=== PATIENT | male | born 1955 | race Caucasian/White ===

== ENCOUNTER 2021-09-26 12:45 | Inpatient (IN) | payer OTHER ==
[~2021-09-26] VITALS: Ht 180.3 cm; Wt 65.0 kg
[~2021-09-26 12:45] MED LIST: CLARITIN10 M1 PO; LISINOPRIL10 MG PO
--- NOTE | 2021-09-26 13:25 | NUR ---
PT ESCORTED TO ROOM 6 FOR EVALUATION OF SOB
[2021-09-26 13:46] LABS: HEMATOCRIT 38.3 % (39.0-50.0); IMMATURE GRANULOCYTES 0.3 % (0.0-5.0); MEAN CELL VOLUME 92.3 fL CALC (80.0-100.0); MEAN CORPUSCULAR HGB 30.1 pG CALC (26.0-32.0); MEAN CORPUSCULAR HGB CONC 32.6 g/dL CAL (32.0-36.0); NEUT# 6.09 thou/uL (1.82-7.42); RED BLOOD COUNT 4.15 mill/uL (4.70-6.10); RED CELL DISTRI WIDTH 15.9 % (11.5-15.5)
[2021-09-26 13:56] LABS: HEMOGLOBIN 12.5 g/dl (14.0-18.0)
[2021-09-26 13:59] LABS: ALBUMIN 4.1 g/dL (3.2-5.0); ALKALINE PHOSPHATASE 50 u/l (38-126); AMYLASE 90 u/l (30-110); BUN 59 mg/dL (8-23); C-REACTIVE PROTEIN 8.9 mg/dL (0-0.9); CHLORIDE 102 mmol/l (95-108); LIPASE 184 u/l (23-300); MAGNESIUM 2.8 mg/dL (1.6-2.3); POTASSIUM 4.2 mmol/l (3.5-5.1); SGOT/AST 25 u/l (19-48); SODIUM 136 mmol/l (137-146); TOTAL PROTEIN 7.8 g/dL (6.3-8.2)
[2021-09-26 14:01] LABS: ANION GAP 19 (6-22 (CALC)); BILIRUBIN, TOTAL 0.7 mg/dL (0.0-1.4); BUN/CREATININE RATIO 27 (12-20 (CALC)); CARBON DIOXIDE 19 mmol/l (22-30); CREATININE 2.2 mg/dL (0.7-1.3); GFR 30 ML/MIN (>=60 (CALC)); GFR FOR AFR.AMER. 36 ML/MIN (>=60 (CALC))
[2021-09-26 15:32] LABS: URINE BILIRUBIN - DIPSTICK NEGATIVE (NEGATIVE); URINE BLOOD DIPSTICK NEGATIVE (NEGATIVE); URINE COLOR YELLOW; URINE GLUCOSE - DIPSTICK NEGATIVE (NEGATIVE); URINE KETONE NEGATIVE (NEGATIVE); URINE LEUK ESTERASE NEGATIVE (NEGATIVE); URINE PH 5.5 (4.5-8.0); URINE PROTEIN - DIPSTICK NEGATIVE (NEG-TRACE); URINE UROBILINOGEN - DIPSTICK 0.2 E.U./dL (0.2)
[2021-09-26 15:34] LABS: URINE NITRITE - DIPSTICK NEGATIVE (Negative)
--- NOTE | 2021-09-26 20:33 | NUR ---
PATIENT ADMITTED TO [facility] / [facility] TO ROOM 266 VIA STRETCHER. AMBULATED SELF TO ROOM BED WITHOUT DIFFICULTY. SHORTNESS OF BREATH ONLY WHEN AMBULATING. PATIENT ALERT AND ORIENTED. ABLE TO MAKE NEEDS KNOWN. ASSESSMENT COMPLETE. IV #20 TO LT. AC FLUSHED AND PATENT. ORIENTED PATIENT TO ROOM CALL LIGHT AND SURROUNDINGS. O2 AT 2L VIA NC. GAVE PATIENT WARM BLANKET FROM BLANKET WARMER PER REQUEST. FRESH WATER AT BEDSIDE. CALL LIGHT AND BELONGINGS REMAIN IN REACH.
[2021-09-26 20:49] VITALS: BP 140/63
--- NOTE | 2021-09-26 23:30 | NUR ---
PATIENT RESTING IN BED QUIETLY ON HIS LEFT SIDE. NO COMPLAINTS OF PAIN OR DISCOMFORT NOTED. NO SIGNS OF DISTRESS NOTED. CALL LIGHT AND BELONGINGS REMAIN IN REACH.
[2021-09-27] VITALS (7 sets, daily range): BP systolic 106–120; BP diastolic 58–70
--- NOTE | 2021-09-27 04:00 | NUR ---
PATIENT RESTING IN BED. NO COMPLAINTS VOICED. NO SIGNS OF DISTRESS NOTED. DENIES NEEDING ANYTHING AT THIS TIME. CALL LIGHT AND BELONGINGS REMAIN IN REACH.
[2021-09-27 05:11] LABS: HEMATOCRIT 36.5 % (39.0-50.0); HEMOGLOBIN 11.6 g/dl (14.0-18.0); IMMATURE GRANULOCYTES 0.5 % (0.0-5.0); MEAN CELL VOLUME 95.1 fL CALC (80.0-100.0); MEAN CORPUSCULAR HGB 30.2 pG CALC (26.0-32.0); MEAN CORPUSCULAR HGB CONC 31.8 g/dL CAL (32.0-36.0); NEUT# 3.41 thou/uL (1.82-7.42); RED BLOOD COUNT 3.84 mill/uL (4.70-6.10)
[2021-09-27 05:27] LABS: ALKALINE PHOSPHATASE 43 u/l (38-126); ANION GAP 18 (6-22 (CALC)); CARBON DIOXIDE 16 mmol/l (22-30); CHLORIDE 111 mmol/l (95-108); CREATININE 1.4 mg/dL (0.7-1.3); GFR 51 ML/MIN (>=60 (CALC)); GFR FOR AFR.AMER. > 60 ML/MIN (>=60 (CALC)); SGOT/AST 19 u/l (19-48); SODIUM 140 mmol/l (137-146)
[2021-09-27 05:28] LABS: BILIRUBIN, TOTAL 0.4 mg/dL (0.0-1.4); BUN 39 mg/dL (8-23); BUN/CREATININE RATIO 28 (12-20 (CALC)); TOTAL PROTEIN 5.8 g/dL (6.3-8.2)
[2021-09-27 05:41] LABS: C-REACTIVE PROTEIN 12.9 mg/dL (0-0.9)
--- NOTE | 2021-09-27 09:30 | NUR ---
PT SITTING IN BED. A&O X3. O2 VIA NC @2L IN PLACE; O2 TITRATED UP TO 3L O2 WAS SUSTAINING 88%. O2 VIA 3L SUSTAINING 91-92%. CLEAR/DIMINISHED BREATH SOUNDS. PT ENCOURAGED NOT TO GET OOB WITHOUT O2, TRACK OILER APPLIED TO REACH REST ROOM. ACTIVE BOWEL SOUNDS X4 QUADRANTS. HEADING UP MACHINE OPERATOR IN PLACE. IV HEALTHY AND PATENT WITH IVF INFUSING PER MAR ORDER. ASSESSMENT COMPLETED. DISCUSSED POC. ISOLATION PRECAUTIONS IN PLACE. CALL LIGHT WITHIN REACH. MED REC COMPLETED AND INFORMATION GIVEN TO Italia GUAN.
[2021-09-27] MEDS ORDERED: SG ASA LOW81 M1 PO (10:30)
[2021-09-27] MEDS ORDERED: LISINOP/HCTZ1 TAB PO (10:30)
[2021-09-27] MEDS ORDERED: PROAIR HFA IN (10:31)
[2021-09-27] MEDS ORDERED: SPIRIVA IN (10:31)
[2021-09-27] MEDS ORDERED: FLOVENT HF110 MCG/AC IN (10:32)
--- NOTE | 2021-09-27 10:50 | NUR ---
DR CLEANING AT BEDSIDE DISCUSSING POC
--- NOTE | 2021-09-27 11:40 | NUR ---
PT SITTING IN BED. NO DISTRESS NOTED. NO NEEDS REPORTED. O2 REMAINS UNCHANGED. CALL LIGHT WITHIN REACH.
--- NOTE | 2021-09-27 18:16 | NUR ---
PT SITTING IN BED EATING DINNER. NO DISTRESS NOTED. O2 REMAINS UNCHANGED. CALL LIGHT WITHIN REACH.
--- NOTE | 2021-09-27 19:35 | NUR ---
PATIENT RESTING IN BED. ASSESSMENT COMPLETE. NO SIGNS OF DISTRESS NOTED. NO COMPLAINTS OF PAIN. CALL LIGHT AND BELONGINGS REMAIN IN REACH.
--- NOTE | 2021-09-28 00:27 | NUR ---
PATIENT RESTING IN BED ON HIS LEFT SIDE. NO SIGNS OF PAIN OR DISTRESS. CALL LIGHT AND BELONGINGS REMAIN IN PATIENTS REACH.
--- NOTE | 2021-09-28 03:45 | NUR ---
PATIENT RESTING IN BED QUIETLY. NO SIGNS OF DISTRESS. NO COMPLAINTS OF PAIN. TELE LEAD FIXED, WORKING APPROPRIATELY NOW. NEW BAG OF IV FLUIDS HANGING. CALL LIGHT AND BELONGINGS REMAIN IN PATIENTS REACH.
[2021-09-28 04:39] VITALS: BP 118/58
[2021-09-28 06:11] LABS: HEMATOCRIT 35.6 % (39.0-50.0); MEAN CELL VOLUME 97.8 fL CALC (80.0-100.0); MEAN CORPUSCULAR HGB 30.2 pG CALC (26.0-32.0); MEAN CORPUSCULAR HGB CONC 30.9 g/dL CAL (32.0-36.0); RED BLOOD COUNT 3.64 mill/uL (4.70-6.10); RED CELL DISTRI WIDTH 16.5 % (11.5-15.5)
[2021-09-28 06:13] LABS: ALBUMIN 2.9 g/dL (3.2-5.0); ALKALINE PHOSPHATASE 39 u/l (38-126); BUN 27 mg/dL (8-23); BUN/CREATININE RATIO 21 (12-20 (CALC)); CARBON DIOXIDE 18 mmol/l (22-30); CHLORIDE 114 mmol/l (95-108); CREATININE 1.3 mg/dL (0.7-1.3); GFR 55 ML/MIN (>=60 (CALC)); GFR FOR AFR.AMER. > 60 ML/MIN (>=60 (CALC)); SGOT/AST 19 u/l (19-48); SODIUM 140 mmol/l (137-146); TOTAL PROTEIN 5.6 g/dL (6.3-8.2)
[2021-09-28 06:26] LABS: ANION GAP 14 (6-22 (CALC)); BILIRUBIN, TOTAL 0.2 mg/dL (0.0-1.4); POTASSIUM 5.6 mmol/l (3.5-5.1)
--- NOTE | 2021-09-28 07:00 | NUR ---
REPORT REC FROM Dylan CARUSO RN
[2021-09-28 08:02] VITALS: BP 135/65
--- NOTE | 2021-09-28 08:04 | NUR ---
PT SITTING IN BED. A&O X3. NO DISTRESS NOTED. O2 VIA NC @3L SUSTAINING 95%, O2 TITRATED DOWN TO 2L. O2 TO BE MONITORED FOR TITRATION NEEDS. EXERTIONAL SOB NOTED AND REPORTED WITH AMBULATION TO THE BATHROOM. CLEAR/DIMINISHED BREATH SOUNDS UPON AUSCULTATION. ACTIVE BOWEL SOUNDS X4 QUADRANTS. COTTON CLEANER IN PLACE. IV HEALTHY AND PATENT. IVF INFUSING PER MAR ORDERS. ASSESSMENT COMPLETED. DISCUSSED POC. CALL LIGHT WITHIN REACH.
--- NOTE | 2021-09-28 10:31 | NUR ---
WALK TEST PREFORMED BY THIS INFORMATICS ANALYST AND A RHIANNONARA RT. O2 DURING AMBULATION 87%. O2 REAPPLIED 94%. RESULTS COMMUNICATED WITH AND ZAHIRA ALONG WITH CM.
[2021-09-28 10:33] VITALS: BP 118/58
--- NOTE | 2021-09-28 10:51 | NUR ---
DR CLEANING AND Dylan ELMORE POULTRY HUSBANDRY WORKER AT BEDSIDE DISCUSSING POC
--- NOTE | 2021-09-28 12:30 | NUR ---
PT SITTING IN BED EATING LUNCH. NO DISTRESS NOTED. O2 REMAINS UNCHANGED AT 2L VIA NC. NO NEEDS REPORTED AT THIS TIME. CALL LIGHT WITHIN REACH.
--- NOTE | 2021-09-28 13:41 | NUR ---
PT SITTING IN BED. NO DISTRESS NOTED. O2 VIA NC @2L REMAINS UNCHANGED. REMDESIVIR INITIATED AT THIS TIME. CALL LIGHT WITHIN REACH.
[2021-09-28 16:04] VITALS: BP 110/61
--- NOTE | 2021-09-28 18:10 | NUR ---
PT SITTING IN BED. NO DISTRESS NOT ED. O2 REMAINS UNCHANGED AT 2L. VASELINE GIVEN FOR REPORTED DRY NOSE; HUMIDIFICATION FOR O2 APPLIED BY DEION RT. NO OTHER NEEDS AT THIS TIME. CALL LIGHT WITHIN REACH
[2021-09-28 19:00] VITALS: BP 129/64
--- NOTE | 2021-09-28 20:15 | NUR ---
PT IN BED. UPPER LUNG MCCARTNEY CLEAR; LOWER LUNG MCCARTNEY DIMINISHED UPON AUSCULTATION. TELEMETRY IN PLACE. O2 @ 2L WITH HUMIDIFIER IN PLACE. ACTIVE BOWEL SOUNDS X4 QUADRANTS. INTACT SKIN. CLUBBED NAILS NOTED. IV SITE HEALTHY AND PATENT. SAFETY PRECAUTIONS IN PLACE. CALL LIGHT WITHIN REACH.
[2021-09-29] VITALS (7 sets, daily range): BP systolic 127–165; BP diastolic 62–73
--- NOTE | 2021-09-29 00:15 | NUR ---
PT SLEEPING IN BED. REPLACE ELECTRODES ON TELEMETRY; TELEMETRY IN PLACE. NO DISTRESS NOTED. PT DENIES PAIN AT THE MOMENT. SAFETY PRECAUTIONS IN PLACE. CALL LIGHT WITHIN REACH.
--- NOTE | 2021-09-29 05:35 | NUR ---
PT HELPED TO RESTROOM; SOME SOB ON EXERTION. O2 @ 2L VIA NASAL CANULA IN PLACE. PT REQUESTED A WARMED BLANKET. TELEMETRY AND SAFETY PRECAUTIONS IN PLACE. CALL LIGHT WITHIN REACH.
[2021-09-29 06:10] LABS: HEMATOCRIT 34.9 % (39.0-50.0); HEMOGLOBIN 10.9 g/dl (14.0-18.0); IMMATURE GRANULOCYTES 0.4 % (0.0-5.0); MEAN CELL VOLUME 96.9 fL CALC (80.0-100.0); MEAN CORPUSCULAR HGB 30.3 pG CALC (26.0-32.0); MEAN CORPUSCULAR HGB CONC 31.2 g/dL CAL (32.0-36.0); NEUT# 13.6 thou/uL (1.82-7.42); RED BLOOD COUNT 3.6 mill/uL (4.70-6.10); RED CELL DISTRI WIDTH 16.6 % (11.5-15.5)
[2021-09-29 06:50] LABS: ALBUMIN 2.8 g/dL (3.2-5.0); C-REACTIVE PROTEIN 3.4 mg/dL (0-0.9); CREATININE 1.5 mg/dL (0.7-1.3); TOTAL PROTEIN 5.4 g/dL (6.3-8.2)
[2021-09-29 06:57] LABS: POTASSIUM 5.8 mmol/l (3.5-5.1)
--- NOTE | 2021-09-29 07:30 | NUR ---
REPORT FROM MARYSE MONTEZ. PT NOTED SITTING UP IN BED. NO APPARENT DISTRESS NOTED. RESPIRATIONS EVEN AND UNLABORED. 02 @ 2L/M VIA NC. A&OX4. PT DENIES ANY PAIN OR DISCOMFORT. DISCUSSED POC. PT VERBALIZED UNDERSTANDING. IV SITE APPEARS HEALTHY. BUDGET ASSISTANT IN PLACE. CALL LIGHT WITHIN REACH. WILL CONTINUE TO MONITOR.
--- NOTE | 2021-09-29 09:10 | NUR ---
YENNY MONTEZ AT BEDSIDE TO ADMINISTER IV INSULIN.
--- NOTE | 2021-09-29 11:49 | NUR ---
PT RESTING IN BED. NO APPARENT DISTRESS NOTED. RESPIRATION EVEN AND UNLABORED. CALL LIGHT WITHIN REACH. WILL CONTINUE TO MONITOR.
--- NOTE | 2021-09-29 14:08 | NUR ---
IV SITE LEAKING, NEW IV ACCESS ESTABLISHED X1 ATTEMPT. PT TOLERATED WELL. OLD IV SITE REMOVED WITH CATH INTACT.
--- NOTE | 2021-09-29 19:00 | NUR ---
REPORT RECEIVED FROM Jenn RUVALCABA LPN
--- NOTE | 2021-09-29 19:30 | NUR ---
PATIENT ASSESSMENT COMPLETED AT THIS TIME
[2021-09-30] VITALS: BP 159/69
--- NOTE | 2021-09-30 | NUR ---
PT UP WATCHING TV, CALL LIGHT AND BEDSIDE TABLE WIHTIN REACH.
[2021-09-30 04:00] VITALS: BP 139/72
--- NOTE | 2021-09-30 04:30 | NUR ---
PT SLEEPING, AWOKEN BY WRITTER. DENIES ANY CURRENT NEEDS. CALL LIGHT AND BEDSIDE WITHIN REACH.
[2021-09-30 04:52] LABS: HEMOGLOBIN 11.1 g/dl (14.0-18.0); IMMATURE GRANULOCYTES 0.6 % (0.0-5.0); MEAN CELL VOLUME 96.7 fL CALC (80.0-100.0); MEAN CORPUSCULAR HGB 30.7 pG CALC (26.0-32.0); MEAN CORPUSCULAR HGB CONC 31.7 g/dL CAL (32.0-36.0); NEUT# 9.22 thou/uL (1.82-7.42); RED BLOOD COUNT 3.62 mill/uL (4.70-6.10); RED CELL DISTRI WIDTH 16.4 % (11.5-15.5)
[2021-09-30 05:34] LABS: ALBUMIN 2.8 g/dL (3.2-5.0); ALKALINE PHOSPHATASE 36 u/l (38-126); ANION GAP 13 (6-22 (CALC)); BUN 33 mg/dL (8-23); BUN/CREATININE RATIO 28 (12-20 (CALC)); C-REACTIVE PROTEIN 2.2 mg/dL (0-0.9); CARBON DIOXIDE 23 mmol/l (22-30); CHLORIDE 112 mmol/l (95-108); CREATININE 1.2 mg/dL (0.7-1.3); GFR 60 ML/MIN (>=60 (CALC)); GFR FOR AFR.AMER. > 60 ML/MIN (>=60 (CALC)); POTASSIUM 4.7 mmol/l (3.5-5.1); SGOT/AST 32 u/l (19-48); SODIUM 142 mmol/l (137-146); TOTAL PROTEIN 5.3 g/dL (6.3-8.2)
[2021-09-30 05:43] LABS: BILIRUBIN, TOTAL 0.1 mg/dL (0.0-1.4)
--- NOTE | 2021-09-30 06:23 | NUR ---
PT SUSTAINING IN 38S. PT ASYMPTOMATIC
--- NOTE | 2021-09-30 07:05 | NUR ---
REPORT FROM GERSON MONTEZ. ASSUMED PT CARE.
[2021-09-30 08:00] VITALS: BP 164/76
--- NOTE | 2021-09-30 08:50 | NUR ---
PHYSICIAN AT BEDSIDE.
[2021-09-30 10:25] VITALS: BP 139/66
--- NOTE | 2021-09-30 12:25 | NUR ---
PT SITTING UP IN BED EATING LUNCH. NO APPARENT DISTRESS NOTED. RESPIRATIONS EVEN AND UNLABORED, O2 @ 2L/M VIA NC. PT DENIES ANY PAIN OR SOB. CALL LIGHT WITHIN REACH. WILL CONTINUE TO MONITOR.
--- NOTE | 2021-09-30 13:28 | NUR ---
O2 SAT 97% ON 2L.
[2021-09-30 15:30] VITALS: BP 182/83
[2021-09-30] MEDS ORDERED: ZPAK PO (15:33)
[2021-09-30] MEDS ORDERED: ASPIRIN REGULA325 M1 PO (15:34)
[2021-09-30] MEDS ORDERED: DEXAMETHASON6 MG PO (15:35)
[2021-09-30] MEDS ORDERED: TESSALON PERLE100 MG PO (15:35)
--- NOTE | 2021-09-30 16:23 | NUR ---
IV site discontinued, cath intact. No edema , no redness, voices no discomfort.
--- NOTE | 2021-09-30 16:39 | NUR ---
Discharge instructions given. Patient verbalizes understanding of same. Discharged in stable condition via Wheelchair to Home with staff. All belongings sent with pt.
== END 2021-09-30 16:39 | disposition home health service (06) | DRG 177 ==
LOC: ED 12:45 → ED-I 13:32 → ED 18:21 → MS2 18:22
PROVIDERS: Emergency Medicine; Nurse Practitioner; ADMIT Internal Medicine; ATTEND Internal Medicine
PROC: XW033E5 Introduction of Remdesivir Anti-infective into Peripheral Vein, Percutaneous Approach, New Technology Group 5 (ICD-10-PCS; principal; 2021-09-27)
PROC: 3E0234Z Introduction of Serum, Toxoid and Vaccine into Muscle, Percutaneous Approach (ICD-10-PCS; 2021-09-27)
DX: U07.1 COVID-19 (principal); J12.82 Pneumonia due to coronavirus disease 2019; J96.01 Acute respiratory failure with hypoxia; N17.9 Acute kidney failure, unspecified; E86.0 Dehydration; I12.9 Hypertensive chronic kidney disease with stage 1 through stage 4 chronic kidney disease, or unspecified chronic kidney disease; N18.9 Chronic kidney disease, unspecified; J43.9 Emphysema, unspecified; R00.1 Bradycardia, unspecified; T37.5X5A Adverse effect of antiviral drugs, initial encounter; Z87.891 Personal history of nicotine dependence; Z23 Encounter for immunization
CPT/HCPCS: J1650